=== PATIENT | female | born 1985 | race Caucasian/White ===

== ENCOUNTER 2017-07-27 19:20 | Emergency (ER) | payer OTHER ==
[2017-07-27 19:27] VITALS: BP 110/61; PULSE 76; TEMP 99; BMI 34.4
--- NOTE | 2017-07-27 20:34 | PDOC ---
History of Present Illness - General Chief Complaint: Pain Stated Complaint: JAW PAIN Time Seen by Provider: 07/27/17 19:39 History Source: Patient - History of Present Illness Initial Comments: 07/27/17 20:33 This is a 31-year-old woman without significant past medical history who presents emergency departments with bilateral facial swelling, jaw pain since awaking this morning. Patient denies any trauma. Patient states that approximately one week ago she began to feel feverish with body aches and generalized malaise. Patient currently rates the pain in her jaw 6/10 and reports difficulty with chewing. Patient immigrated from [place] 16 years ago and is unsure of vaccination status. Past History - Past Medical History Allergies/Adverse Reactions: Allergies Allergy/AdvReac Type Severity Reaction Status Date / Time No Known Allergies Allergy Verified 07/27/17 19:24 Home Medications: Ambulatory Orders NK [No Known Home Medication] 07/27/17 COPD: No - Suicide/Smoking/Psychosocial Hx Smoking History: Never smoked Review of Systems - Review of Systems Able to Perform ROS?: Yes Is the patient limited Lithuanian proficient: No Constitutional: Yes: See HPI HEENTM: Yes: See HPI Respiratory: No: Symptoms reported Cardiac (ROS): No: Symptoms Reported ABD/GI: No: Symptoms Reported : No: Symptoms Reported Musculoskeletal: No: Symptoms Reported Integumentary: No: Symptoms Reported Neurological: No: Symptoms reported *Physical Exam - Vital Signs Last Vital Signs Temp Pulse Resp BP Pulse Ox 99 F 76 18 110/61 99 07/27/17 19:24 07/27/17 19:24 07/27/17 19:24 07/27/17 19:24 07/27/17 19:24 - Physical Exam General Appearance: Yes: Appropriately Dressed. No: Apparent Distress HEENT: positive: Other (Submandibular salivary and parotid glands palpable bilaterally. Full articulation of trauma performed. No malalignment noted.) Neck: positive: Trachea midline, Supple. negative: Stridor Respiratory/Chest: positive: Lungs Clear, Normal Breath Sounds. negative: Respiratory Distress, Accessory Muscle Use, Stridor Cardiovascular: positive: Regular Rhythm, Regular Rate. negative: Murmur Gastrointestinal/Abdominal: positive: Normal Bowel Sounds, Soft. negative: Tender Musculoskeletal: positive: Normal Inspection. negative: CVA Tenderness Extremity: positive: Normal Inspection Integumentary: positive: Normal Color, Dry, Warm Neurologic: positive: Alert, Normal Response Medical Decision Making - Medical Decision Making 07/27/17 20:34 A/P: 31-year-old female without significant past medical history with a swollen parotid glands and jaw pain since this morning Full articulation of the mandible noted. No malalignment of the mandible. No tenderness over TMJ during articulation Swollen submandibular salivary glands Swollen parotid glands No sublingual edema palpated Good dentition noted without any obvious dental caries present Voice is unchanged according to family Parotiditis It was explained to the patient that the treatment is to manage the symptoms. Patient instructed to be on bedrest for the next 5 days or until symptoms resolve. Patient is instructed to take NSAID medication for relief of pain. Patient given referral to Dr. Merrill for further evaluation *DC/Admit/Observation/Transfer Diagnosis at time of Disposition: Parotiditis - Discharge Dispostion Disposition: HOME Condition at time of disposition: Stable Decision to Admit order: No - Referrals Referrals: Hector Merrill MD [Staff Physician] - - Patient Instructions Printed Discharge Instructions: DI for Parotitis-Adult Additional Instructions: Rest, drink lots of fluids: Teas, water, soups, Pedialyte Saltwater gargles Steamy showers/seem to face break up mucus Avoid contact with others until fevers and cough resolved Lots of handwashing and good hygiene Continue [id number] medications for symptomatic relief Tylenol or Motrin for fever and pain Followup with private physician in one to 2 days as needed Return to emergency department for worsened symptoms, fevers, dehydration Descansa, mone muchos lquidos: ts, agua, sopas, Pedialyte Grgaras de agua salada Las duchas con agua parecen romper la mucosidad Evite el contacto con otras personas hasta que se resuelvan las fiebres y la tos Mucho lavado de divya y buena higiene Continuar tomando medicamentos sin receta para aliviar los sntomas Tylenol o Motrin para la fiebre y el dolor Seguimiento con un mdico privado en dinorah o dos mendoza segn sea necesario Regrese al departamento de emergencias por sntomas empeorados, fiebre, deshidratacin Print Language: BHUTANESE - Post Discharge Activity Forms/Work/School Notes: Back to Work
== END 2017-07-27 20:40 | disposition home or self-care (01) ==
LOC: JERFT 19:20
DX: K11.21 Acute sialoadenitis (principal)
CPT/HCPCS: 99281-25